=== PATIENT | male | born 1970 | race Caucasian/White ===

== ENCOUNTER 2019-12-07 03:30 | Inpatient (IN) | payer BC ==
[2019-12-07 04:19] LABS: ABSOLUTE BASOPHILS # (AUTO) 0.1 10^3/uL (0.0-0.2); ABSOLUTE EOSINOPHILS # (AUTO) 0.1 10^3/uL (0.0-0.6); ABSOLUTE LYMPHOCYTES (AUTO) 2.3 10^3/uL (0.5-4.7); ABSOLUTE MONOCYTES (AUTO) 1.4 10^3/uL (0.1-1.4); ABSOLUTE NEUT (AUTO) 15.4 10^3/uL (1.7-8.2); BASOPHILS % (AUTO) 0.4 % (0-2); EOSINOPHILS % (AUTO) 0.5 % (0-6); HEMATOCRIT 46.9 % (37.9-51.0); HEMOGLOBIN 15.7 g/dL (13.5-17.0); LYMPHOCYTES % (AUTO) 12.1 % (13-45); MEAN CORPUSCULAR HEMOGLOBIN 32.5 pg (27.0-33.4); MEAN CORPUSCULAR HGB CONC 33.5 g/dL (32.0-36.0); MEAN CORPUSCULAR VOLUME 97 fl (80-97); MONOCYTES % (AUTO) 7.1 % (3-13); PLATELET COUNT 262 10^3/uL (150-450); RED BLOOD COUNT 4.83 10^6/uL (4.35-5.55); RED CELL DISTRIBUTION WIDTH 12.8 % (11.5-14.0); SEGMENTED NEUTROPHILS % (AUTO) 79.9 % (42-78); TOTAL CELLS COUNTED % (AUTO) 100 %; WHITE BLOOD COUNT 19.3 10^3/uL (4.0-10.5)
[2019-12-07] MEDS ORDERED: KETOROLAC TROMETHAMINE INJ/PF 30 MG/1 ML SDV IV ONE (04:35)
[2019-12-07] MEDS ORDERED: MORPHINE SULFATE 10 MG/ML INJ IV ONE (04:35)
[2019-12-07 04:36] LABS: APPEARANCE,URINE CLEAR; BILIRUBIN,URINE NEGATIVE (NEGATIVE); COLOR,URINE YELLOW; GLUCOSE, URINE NEGATIVE (NEGATIVE); KETONES,URINE TRACE mg/dL (NEGATIVE); LEUKOCYTE ESTERASE,URINE NEGATIVE (NEGATIVE); NITRITE,URINE NEGATIVE (NEGATIVE); PROTEIN,URINE NEGATIVE (NEGATIVE); URINE SPECIFIC GRAVITY 1.012; UROBILINOGEN,URINE NEGATIVE mg/dL (<2.0)
[2019-12-07] MEDS ORDERED: NORMAL SALINE 1000 ML 1,000 ML IV ONE ×2 (04:37→05:57)
--- NOTE | 2019-12-07 04:39 | ER Document Report ---
ED GI/ - General Chief Complaint: Abdominal Pain Stated Complaint: ABDOMINAL PAIN Time Seen by Provider: 12/07/19 04:29 Notes: Patient is a 49-year-old male that comes emergency department for chief complaint of sudden onset severe pain in his left mid to lower abdomen that radiates around to his left back. He vomited 3 times. Symptoms woke him up from sleep tonight. He comes by ambulance, he was given 4 mg of Zofran. He denies fever, dysuria, injury, or any other complaints. Past medical history of hypothyroidism and GERD, he denies history of kidney stones, he denies any surgeries. - Related Data Home Medications: dexilant, levothyroxine Past Medical History - General Information source: Patient - Social History Smoking Status: Never Smoker Frequency of alcohol use: former heavy Drug Abuse: None Lives with: Alone Family History: Reviewed & Not Pertinent Patient has homicidal ideation: No Endocrine Medical History: Reports: Hx Hypothyroidism GI Medical History: Reports: Hx Gastroesophageal Reflux Disease - Immunizations Hx Diphtheria, Pertussis, Tetanus Vaccination: Yes Review of Systems - Review of Systems Constitutional: No symptoms reported EENT: No symptoms reported Cardiovascular: No symptoms reported Respiratory: No symptoms reported Gastrointestinal: See HPI Genitourinary: See HPI Male Genitourinary: No symptoms reported Musculoskeletal: No symptoms reported Skin: No symptoms reported Hematologic/Lymphatic: No symptoms reported Neurological/Psychological: No symptoms reported Physical Exam - Vital signs Vitals: Temp Pulse Resp BP Pulse Ox 97.5 F 66 20 140/77 H 100 12/07/19 03:35 12/07/19 03:35 12/07/19 03:35 12/07/19 03:35 12/07/19 03:35 - Notes Notes: GENERAL: Patient in obvious pain, has difficulty holding still, but he is cooperative and alert HEAD: Normocephalic, atraumatic. EYES: Pupils equal, round, and reactive to light. Extraocular movements intact. ENT: Oral mucosa moist, tongue midline. Oropharynx unremarkable. Airway patent. LUNGS: Clear to auscultation bilaterally, no wheezes, rales, or rhonchi. No respiratory distress. Non-tender chest wall. HEART: Regular rate and rhythm. No murmur ABDOMEN: Generalized tenderness in the left upper and mid to lower abdomen, nonspecific, no guarding, no rigidity, no distention GENITOURINARY: No swelling, tenderness, or abnormal findings noted. Exam performed with Linda RAO at bedside. EXTREMITIES: Moves all 4 extremities spontaneously. No edema, normal radial and dorsalis pedis pulses bilaterally. No cyanosis. BACK: no cervical, thoracic, lumbar midline tenderness. No saddle anesthesia, normal distal neurovascular exam. Moves all extremities in full range of motion. NEUROLOGICAL: Alert and oriented x3. Normal speech. Cranial nerves II through XII grossly intact. Strength 5/5 in all extremities. PSYCH: Somewhat anxious SKIN: Warm, dry, normal turgor. No rashes or lesions noted. Course - Re-evaluation Re-evalutation: Patient is very uncomfortable on initial evaluation, pain wraps around the left side to the flank and down the abdomen along the left side. Abdomen is nonspecific on exam, there is no noted guarding. Vital signs are unremarkable. Sudden onset of symptoms is most suggestive of ureterolithiasis. Work-up pending, medicating the patient. CBC shows leukocytosis at 19,000, chemistry unremarkable, lipase is still pending which suggests this is elevated. Urine unremarkable. CT indicating acute pancreatitis, unremarkable gallbladder, no kidney stones or ureterolithiasis. On reevaluation patient is improved but is still having pain, he will be remedicated. Patient will require admission for significant pancreatitis, vomiting, persistent pain requiring IV narcotics. Patient states full agreement with the plan. Discussed with Dr. Alexandra, hospitalist, patient will be accepted to [facility], daytime hospitalist will evaluate based on the time of admission. - Vital Signs Vital signs: Temp Pulse Resp BP Pulse Ox 97.5 F 66 20 140/77 H 100 12/07/19 03:35 12/07/19 03:35 12/07/19 03:35 12/07/19 03:35 12/07/19 03:35 - Laboratory Result Diagrams: 12/07/19 04:00 12/07/19 04:00 Laboratory results interpreted by me: 12/07/19 12/07/19 12/07/19 04:00 04:00 04:00 WBC 19.3 H Lymph % (Auto) 12.1 L Absolute Neuts (auto) 15.4 H Seg Neutrophils % 79.9 H Glucose 143 H Lipase 47363.0 H Urine Ketones TRACE H Discharge - Discharge Clinical Impression: Flank pain Acute pancreatitis Qualifiers: Pancreatitis type: idiopathic Acute pancreatitis complication: unspecified Qualified Code(s): K85.00 - Idiopathic acute pancreatitis without necrosis or infection Vomiting Qualifiers: Vomiting type: unspecified Vomiting Intractability: unspecified Nausea presence: with nausea Qualified Code(s): R11.2 - Nausea with vomiting, unspecified Abdominal pain Qualifiers: Abdominal location: generalized Qualified Code(s): R10.84 - Generalized abdominal pain Condition: Fair Disposition: ADMITTED INPATIENT Admitting Provider: Ibrahima (Hospitalist) Unit Admitted: [facility]
[2019-12-07 04:53] LABS: ALBUMIN 4.8 g/dL (3.5-5.0); ALKALINE PHOSPHATASE 79 U/L (38-126); ANION GAP 10 (5-19); ASPARTATE AMINO TRANSFERASE 24 U/L (17-59); BILIRUBIN,TOTAL 0.6 mg/dL (0.2-1.3); BLOOD UREA NITROGEN 17 mg/dL (7-20); CALCIUM 9.5 mg/dL (8.4-10.2); CARBON DIOXIDE 26 mmol/L (22-30); CHLORIDE 104 mmol/L (98-107); GLUCOSE 143 mg/dL (75-110); POTASSIUM 3.7 mmol/L (3.6-5.0); TOTAL PROTEIN 7.6 g/dL (6.3-8.2)
--- NOTE | 2019-12-07 05:38 | RADIOLOGY REPORT (SQ) ---
EXAM DESCRIPTION: CT ABDOMEN PELVIS WITHOUT IV CONTRAST COMPLETED DATE/TME: 12/07/2019 04:37 CLINICAL HISTORY: 49 years, Male, left flank and abd pain, vomiting COMPARISON: None. TECHNIQUE: 320 Images stored on PACS. All CT scanners at this facility use dose modulation, iterative reconstruction, and/or weight based dosing when appropriate to reduce radiation dose to as low as reasonably achievable (ALARA). [facility]: Dose Right [facility]: CareDose [facility]: Dose Right [facility]: Teradose 4D [facility]: [employer] LIMITATIONS: None. FINDINGS: The lung bases are unremarkable. Osseous structures are grossly intact. Limited evaluation of the liver, spleen, adrenal glands is unremarkable. Diffuse heterogeneity of the pancreas with extensive peripancreatic inflammatory change and phlegmon consistent with acute pancreatitis. The gallbladder is present. Negative for urinary tract calculus or hydronephrosis. No gross evidence for bowel obstruction. Abundant stool in the colon. No free air. Equivocal/trace of free fluid in the pelvis. Normal appendix. Mild atheromatous change IMPRESSION: Findings consistent with acute pancreatitis. Negative for urinary tract calculus or hydronephrosis TECHNICAL DOCUMENTATION: Quality ID # [id number]: Final reports with documentation of one or more dose reduction techniques (e.g., Automated exposure control, adjustment of the mA and/or kV according to patient size, use of iterative reconstruction technique) copyright 2011 [employer]- All Rights Reserved
[2019-12-07] MEDS ORDERED: HYDROMORPHONE HCL INJ/PF 2 MG/ML AMPULE IV ONE (05:55)
[2019-12-07] MEDS ORDERED: RINGERS SOLUTION,LACTATED 1,000 ML IV PRN (06:46)
[2019-12-07] MEDS ORDERED: HYDRALAZINE HCL INJ/PF 20 MG/1 ML SDV IV PRN (06:51)
[2019-12-07] MEDS ORDERED: LORAZEPAM INJ 2 MG/1 ML VIAL IV PRN (06:51)
[2019-12-07] MEDS ORDERED: PROMETHAZINE HCL INJ 25 MG/1 ML VIAL IV PRN (06:51)
[2019-12-07 07:45] LABS: ALKALINE PHOSPHATASE 69 U/L (38-126); ANION GAP 5 (5-19); ASPARTATE AMINO TRANSFERASE 21 U/L (17-59); BILIRUBIN,TOTAL 0.5 mg/dL (0.2-1.3); BLOOD UREA NITROGEN 17 mg/dL (7-20); CALCIUM 8.5 mg/dL (8.4-10.2); CARBON DIOXIDE 26 mmol/L (22-30); CHLORIDE 108 mmol/L (98-107); GLUCOSE 110 mg/dL (75-110); POTASSIUM 3.9 mmol/L (3.6-5.0); TOTAL PROTEIN 6.7 g/dL (6.3-8.2)
[2019-12-07] MEDS ORDERED: PANTOPRAZOLE SODIUM 40 MG VIAL IV ONE (07:45)
[2019-12-07 07:59] LABS: CHOLESTEROL 193.54 mg/dL (0-200); TRIGLYCERIDES 197 mg/dL (<150)
[2019-12-07 08:10] LABS: DIRECT LDL 121 mg/dL (<100)
[2019-12-07 08:25] LABS: AMYLASE 5378 U/L (30-110); VLDL CHOLESTEROL 39.4 mg/dL (10-31)
[2019-12-07] MEDS ORDERED: GLUCAGON,HUMAN RECOMB 1 MG INJ SUBCUT PRN (09:11)
[2019-12-07] MEDS ORDERED: DEXTROSE 50%-WATER 25 GM/50 ML DISP.SYRIN IV PRN ×2 (09:11)
[2019-12-07] MEDS ORDERED: DEXTROSE 40% GEL 15 GM TUBE PO PRN ×2 (09:11)
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
[2019-12-07] MEDS: ONDANSETRON HCL INJ/PF 4 MG/2 ML SDV IV PRN ×3 (09:53→22:40)
[2019-12-07] MEDS: HYDROMORPHONE HCL INJ/PF 2 MG/ML AMPULE IV PRN ×4 (09:53→19:37)
[2019-12-07] MEDS ORDERED: PANTOPRAZOLE SODIUM 40 MG TABLET.DR PO SCH (11:30)
[2019-12-07] MEDS: RINGERS SOLUTION,LACTATED 1,000 ML IV PRN ×2 (11:32→18:25)
[2019-12-07] MEDS: ENOXAPARIN SODIUM INJ 40 MG/0.4 ML DISP.SYRIN SUBCUT SCH ×2 (11:43→11:58)
--- NOTE | 2019-12-07 11:49 | RADIOLOGY REPORT (SQ) ---
EXAM DESCRIPTION: U/S ABDOMEN COMPLETE W/O DOP IMAGES COMPLETED DATE/TIME: 12/07/2019 10:45 am REASON FOR STUDY: Acute pancreatitis COMPARISON: CT same day TECHNIQUE: Dynamic and static grayscale images acquired of the abdomen and recorded on PACS. Additio nal selected color Doppler and spectral images recorded. Note: Study does not meet criteria for complete doppler/duplex scan LIMITATIONS: None. FINDINGS: PANCREAS: Heterogeneous. Pancreatic duct is 2.4 mm. LIVER: No masses. Echotexture normal. LIVER VASCULATURE: Normal directional flow of the main portal vein and hepatic veins. GALLBLADDER: Small polyps. No gallstones. ULTRASOUND-DETECTED SAWANT'S SIGN: Negative. INTRAHEPATIC DUCTS AND COMMON DUCT: CBD and intrahepatic ducts normal caliber. No filling defects. INFERIOR VENA CAVA: Normal flow. AORTA: No aneurysm. RIGHT KIDNEY: Normal size. Normal echogenicity. No solid or suspicious masses. No hydronephros is. No calcifications. LEFT KIDNEY: Normal size. Normal echogenicity. 1.2 cm complex cyst. No hydronephrosis. No ca lcifications. SPLEEN: Normal size. No solid masses. PERITONEAL AND PLEURAL SPACES: Mild fluid in the abdomen. OTHER: No other significant finding. IMPRESSION: No gallstones. Gallbladder polyp. Heterogeneous pancreas consistent with the diagnosis of pancreatitis. Complex cysts in left kidney. TECHNICAL DOCUMENTATION: JOB ID: [id number] [employer]- All Rights Reserved Reading location - IP/workstation name: [email or web address]
[2019-12-07] MEDS ORDERED: PANTOPRAZOLE SODIUM 40 MG VIAL IV SCH (22:00)
[2019-12-08] MEDS: RINGERS SOLUTION,LACTATED 1,000 ML IV PRN ×4 (00:26→20:19)
[2019-12-08] MEDS: HYDROMORPHONE HCL INJ/PF 2 MG/ML AMPULE IV PRN ×6 (00:26→23:58)
[2019-12-08] MEDS: LEVOTHYROXINE SODIUM 0.05 MG TABLET PO SCH ×2 (05:38→06:18)
[2019-12-08] MEDS: ONDANSETRON HCL INJ/PF 4 MG/2 ML SDV IV PRN ×3 (05:38→20:16)
[2019-12-08 07:27] LABS: ALBUMIN 3.4 g/dL (3.5-5.0); ALKALINE PHOSPHATASE 60 U/L (38-126); ANION GAP 5 (5-19); ASPARTATE AMINO TRANSFERASE 19 U/L (17-59); BILIRUBIN,TOTAL 1.1 mg/dL (0.2-1.3); BLOOD UREA NITROGEN 15 mg/dL (7-20); CALCIUM 8.5 mg/dL (8.4-10.2); CARBON DIOXIDE 28 mmol/L (22-30); CHLORIDE 103 mmol/L (98-107); GLUCOSE 102 mg/dL (75-110); POTASSIUM 3.7 mmol/L (3.6-5.0); TOTAL PROTEIN 5.9 g/dL (6.3-8.2)
[2019-12-08 07:55] LABS: AMYLASE 1867 U/L (30-110)
--- NOTE | 2019-12-08 08:27 | PDOC PROGRESS REPORT ---
Subjective Progress Note for:: 12/08/19 Subjective:: Patient reports that he had abdominal pain earlier this a.m. and received pain medication and currently is pain-free Reason For Visit: ACUTE PANCREATITIS Physical Exam Vital Signs: Temp Pulse Resp BP Pulse Ox 98.0 F 65 18 127/74 H 96 12/08/19 03:15 12/08/19 03:15 12/08/19 03:15 12/08/19 03:15 12/08/19 03:15 Intake & Output 12/07/19 12/08/19 12/09/19 06:59 06:59 06:59 Intake Total 1000 3686 Output Total 1025 Balance 1000 2661 Weight 113.398 kg 107.7 kg General appearance: PRESENT: no acute distress, cooperative Head exam: PRESENT: atraumatic, normocephalic Eye exam: PRESENT: conjunctiva pink Mouth exam: PRESENT: moist, tongue midline Neck exam: ABSENT: JVD Respiratory exam: PRESENT: clear to auscultation cherie, symmetrical, unlabored Cardiovascular exam: PRESENT: RRR, +S1, +S2 Pulses: PRESENT: normal radial pulses Vascular exam: PRESENT: normal capillary refill GI/Abdominal exam: PRESENT: guarding, normal bowel sounds, soft, tenderness, other - Abdomen tender to palpation especially in upper quadrants and epigastric area Rectal exam: PRESENT: deferred Extremities exam: PRESENT: full ROM. ABSENT: calf tenderness, pedal edema Musculoskeletal exam: PRESENT: ambulatory Neurological exam: PRESENT: alert, awake, oriented to person, oriented to place, oriented to time, oriented to situation, CN II-XII grossly intact Psychiatric exam: PRESENT: appropriate affect, normal mood. ABSENT: agitated, anxious Skin exam: PRESENT: dry, normal color, warm Results Laboratory Results: 12/08/19 06:10 12/08/19 06:10 12/07/19 12/07/19 12/07/19 04:00 12:17 14:35 WBC RBC Hgb Hct MCV MCH MCHC RDW Plt Count Sodium Potassium Chloride Carbon Dioxide Anion Gap BUN Creatinine Est GFR ( Amer) Glucose Lactic Acid 2.0 1.6 Calcium Magnesium Total Bilirubin AST Alkaline Phosphatase Total Protein Albumin Triglycerides 197 H Cholesterol 193.54 LDL Cholesterol Direct 121 H VLDL Cholesterol 39.4 H HDL Cholesterol 38 L Amylase 5378 H Lipase TSH Free T3 pg/mL 12/07/19 12/08/19 12/08/19 15:35 06:10 06:10 WBC Cancelled RBC Cancelled Hgb Cancelled Hct Cancelled MCV Cancelled MCH Cancelled MCHC Cancelled RDW Cancelled Plt Count Cancelled Sodium Potassium Chloride Carbon Dioxide Anion Gap BUN Creatinine Est GFR ( Amer) Glucose Lactic Acid Calcium Magnesium Total Bilirubin AST Alkaline Phosphatase Total Protein Albumin Triglycerides Cholesterol LDL Cholesterol Direct VLDL Cholesterol HDL Cholesterol Amylase Lipase TSH 1.55 Free T3 pg/mL 3.12 12/08/19 06:10 WBC RBC Hgb Hct MCV MCH MCHC RDW Plt Count Sodium 135.5 L Potassium 3.7 Chloride 103 Carbon Dioxide 28 Anion Gap 5 BUN 15 Creatinine 0.63 Est GFR ( Amer) > 60 Glucose 102 Lactic Acid Calcium 8.5 Magnesium 2.0 Total Bilirubin 1.1 AST 19 Alkaline Phosphatase 60 Total Protein 5.9 L Albumin 3.4 L Triglycerides Cholesterol LDL Cholesterol Direct VLDL Cholesterol HDL Cholesterol Amylase 1867 H Lipase 6698.7 H TSH Free T3 pg/mL Impressions: Abdomen Ultrasound 12/07/19 00:00 IMPRESSION: No gallstones. Gallbladder polyp. Heterogeneous pancreas consistent with the diagnosis of pancreatitis. Complex cysts in left kidney. Abdomen/Pelvis CT 12/07/19 04:37 IMPRESSION: Findings consistent with acute pancreatitis. Negative for urinary tract calculus or hydronephrosis TECHNICAL DOCUMENTATION: Quality ID # [id number]: Final reports with documentation of one or more dose reduction techniques (e.g., Automated exposure control, adjustment of the mA and/or kV according to patient size, use of iterative reconstruction technique) copyright 2011 [employer]- All Rights Reserved Assessment and Plan - Diagnosis (1) Acute pancreatitis Qualifiers: Pancreatitis type: idiopathic Acute pancreatitis complication: unspecified Qualified Code(s): K85.00 - Idiopathic acute pancreatitis without necrosis or i nfection Is this a current diagnosis for this admission?: Yes Plan: Lipase significantly improved today (6698) Triglycerides 197 Advance diet to clear liquids Continue IV fluids Pain management Continue to monitor lipase CT of the abdomen does not mention gallstones. Reviewed CT with radiologist who said that they cannot comment and recommend abdominal ultrasound if cholelithiasis is a concern Abdominal ultrasound reveals no gallstones, however there was an incidental finding of a gallbladder polyp as well as a complex cyst in the left kidney (2) Leucocytosis Is this a current diagnosis for this admission?: Yes Plan: CBC pending this a.m. 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 daily) (5) GERD (gastroesophageal reflux disease) Is this a current diagnosis for this admission?: Yes Plan: Continue PPI (patient is on Dexilant at home which is nonformulary) Changed to pantoprazole 40 mg p.o. daily - Time Time Spent with patient: 25-34 minutes Medications reviewed and adjusted accordingly: Yes Anticipated Discharge Disposition: Home, Self Care Anticipated Discharge: Other
[2019-12-08 08:30] LABS: HEMATOCRIT 39.3 % (37.9-51.0); HEMOGLOBIN 13.7 g/dL (13.5-17.0); MEAN CORPUSCULAR HEMOGLOBIN 33.1 pg (27.0-33.4); MEAN CORPUSCULAR HGB CONC 34.8 g/dL (32.0-36.0); MEAN CORPUSCULAR VOLUME 95 fl (80-97); PLATELET COUNT 205 10^3/uL (150-450); RED BLOOD COUNT 4.13 10^6/uL (4.35-5.55); WHITE BLOOD COUNT 14.8 10^3/uL (4.0-10.5)
[2019-12-08] MEDS: ENOXAPARIN SODIUM INJ 40 MG/0.4 ML DISP.SYRIN SUBCUT SCH (09:58)
[2019-12-08] MEDS ORDERED: PANTOPRAZOLE SODIUM 40 MG VIAL IV SCH (10:00)
[2019-12-09] MEDS: RINGERS SOLUTION,LACTATED 1,000 ML IV PRN (03:28)
[2019-12-09] MEDS: HYDROMORPHONE HCL INJ/PF 2 MG/ML AMPULE IV PRN ×6 (03:52→20:52)
[2019-12-09] MEDS: PANTOPRAZOLE SODIUM 40 MG TABLET.DR PO SCH (05:42)
[2019-12-09] MEDS: LEVOTHYROXINE SODIUM 0.05 MG TABLET PO SCH (05:43)
[2019-12-09 06:31] LABS: HEMATOCRIT 35.8 % (37.9-51.0); HEMOGLOBIN 12.2 g/dL (13.5-17.0); MEAN CORPUSCULAR HEMOGLOBIN 32.7 pg (27.0-33.4); MEAN CORPUSCULAR HGB CONC 34.1 g/dL (32.0-36.0); MEAN CORPUSCULAR VOLUME 96 fl (80-97); PLATELET COUNT 187 10^3/uL (150-450); RED BLOOD COUNT 3.73 10^6/uL (4.35-5.55); RED CELL DISTRIBUTION WIDTH 12.5 % (11.5-14.0); WHITE BLOOD COUNT 16.1 10^3/uL (4.0-10.5)
[2019-12-09 06:53] LABS: ALBUMIN 3.2 g/dL (3.5-5.0); ALKALINE PHOSPHATASE 59 U/L (38-126); AMYLASE 429 U/L (30-110); ANION GAP 9 (5-19); ASPARTATE AMINO TRANSFERASE 19 U/L (17-59); BILIRUBIN,TOTAL 1.1 mg/dL (0.2-1.3); BLOOD UREA NITROGEN 11 mg/dL (7-20); CALCIUM 8.3 mg/dL (8.4-10.2); CARBON DIOXIDE 27 mmol/L (22-30); CHLORIDE 95 mmol/L (98-107); GLUCOSE 102 mg/dL (75-110); POTASSIUM 3.4 mmol/L (3.6-5.0); TOTAL PROTEIN 5.7 g/dL (6.3-8.2)
[2019-12-09] MEDS ORDERED: POTASSI CL 20 MEQ/50 ML RIDER 20 MEQ/50 ML RTUPB IV ONE (08:30)
[2019-12-09] MEDS: ENOXAPARIN SODIUM INJ 40 MG/0.4 ML DISP.SYRIN SUBCUT SCH (10:19)
[2019-12-09] MEDS: NORMAL SALINE 1000 ML 1,000 ML IV PRN ×2 (10:23→19:55)
--- NOTE | 2019-12-09 14:25 | PDOC PROGRESS REPORT ---
Subjective Progress Note for:: 12/09/19 Subjective:: Patient reports ongoing intermittent abdominal pain and bloating Reason For Visit: ACUTE PANCREATITIS Physical Exam Vital Signs: Temp Pulse Resp BP Pulse Ox 97.8 F 60 17 146/80 H 99 12/09/19 10:58 12/09/19 10:58 12/09/19 10:58 12/09/19 10:58 12/09/19 10:58 Intake & Output 12/08/19 12/09/19 12/10/19 06:59 06:59 06:59 Intake Total 3686 3810 1170 Output Total 2584 645 9171 Balance 2661 3085 170 Weight 107.7 kg 108.1 kg General appearance: PRESENT: no acute distress, cooperative, well-developed, well-nourished Head exam: PRESENT: atraumatic, normocephalic Eye exam: PRESENT: conjunctiva pink Mouth exam: PRESENT: moist, tongue midline Neck exam: ABSENT: JVD Respiratory exam: PRESENT: clear to auscultation cherie, symmetrical, unlabored. ABSENT: accessory muscle use Cardiovascular exam: PRESENT: RRR, +S1, +S2 Vascular exam: PRESENT: normal capillary refill GI/Abdominal exam: PRESENT: normal bowel sounds, soft. ABSENT: distended, tenderness Rectal exam: PRESENT: deferred Extremities exam: ABSENT: calf tenderness, clubbing, pedal edema Musculoskeletal exam: PRESENT: ambulatory Neurological exam: PRESENT: alert, awake, oriented to person, oriented to place, oriented to time, oriented to situation, CN II-XII grossly intact Psychiatric exam: PRESENT: appropriate affect, normal mood. ABSENT: agitated, anxious Skin exam: PRESENT: dry, normal color, warm Results Laboratory Results: 12/09/19 05:32 12/09/19 05:32 12/09/19 12/09/19 05:32 05:32 WBC 16.1 H RBC 3.73 L Hgb 12.2 L Hct 35.8 L MCV 96 MCH 32.7 MCHC 34.1 RDW 12.5 Plt Count 187 Sodium 130.7 L Potassium 3.4 L Chloride 95 L Carbon Dioxide 27 Anion Gap 9 BUN 11 Creatinine 0.56 Est GFR ( Amer) > 60 Glucose 102 Calcium 8.3 L Magnesium 1.9 Total Bilirubin 1.1 AST 19 Alkaline Phosphatase 59 Total Protein 5.7 L Albumin 3.2 L Amylase 429 H Lipase 563.5 H Impressions: Abdomen Ultrasound 12/07/19 00:00 IMPRESSION: No gallstones. Gallbladder polyp. Heterogeneous pancreas consistent with the diagnosis of pancreatitis. Complex cysts in left kidney. Abdomen/Pelvis CT 12/07/19 04:37 IMPRESSION: Findings consistent with acute pancreatitis. Negative for urinary tract calculus or hydronephrosis TECHNICAL DOCUMENTATION: Quality ID # [id number]: Final reports with documentation of one or more dose reduction techniques (e.g., Automated exposure control, adjustment of the mA and/or kV according to patient size, use of iterative reconstruction technique) copyright 2011 [employer]- All Rights Reserved Assessment and Plan - Diagnosis (1) Acute pancreatitis Qualifiers: Pancreatitis type: idiopathic Acute pancreatitis complication: unspecified Qualified Code(s): K85.00 - Idiopathic acute pancreatitis without necrosis or infection Is this a current diagnosis for this admission?: Yes Plan: Lipase continues to trend down Triglycerides 197 Continue clear liquid diet, patient continues to have pain Continue IV fluids Patient reports adequate pain control on current analgesic plan Continue to monitor lipase CT of the abdomen does not mention gallstones. Reviewed CT with radiologist who said that they cannot comment and recommend abdominal ultrasound if cholelithiasis is a concern Abdominal ultrasound reveals no gallstones, however there was an incidental finding of a gallbladder polyp as well as a complex cyst in the left kidney (2) Leucocytosis Is this a current diagnosis for this admission?: Yes Plan: Leukocytosis worsening Patient remains afebrile and nontoxic in appearance No mention of necrosis on CT Check blood cultures If leukocytosis persists or worsens consider repeat CT of the abdomen Continue to monitor off antibiotics (3) Nausea and vomiting Is this a current diagnosis for this admission?: Yes Plan: Resolved Promethazine stopped on 12/07/2019, patient has history of polysubstance abuse and has been in recovery for 17 years thus we will avoid medications which have significant [employer] effects Continue ondansetron 4 mg IV every 6 hours as needed (4) Hypothyroidism Qualifiers: 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 daily (5) GERD (gastroesophageal reflux disease) Is this a current diagnosis for this admission?: Yes Plan: Continue PPI (patient is on Dexilant at home which is nonformulary) Continue pantoprazole 40 mg p.o. daily - Time Time Spent with patient: 25-34 minutes Medications reviewed and adjusted accordingly: Yes Anticipated Discharge Disposition: Home, Self Care Anticipated Discharge: Other
[2019-12-09] MEDS: ONDANSETRON HCL INJ/PF 4 MG/2 ML SDV IV PRN (20:56)
[2019-12-10] MEDS: HYDROMORPHONE HCL INJ/PF 2 MG/ML AMPULE IV PRN ×4 (00:27→11:20)
[2019-12-10] MEDS: NORMAL SALINE 1000 ML 1,000 ML IV PRN ×2 (05:39→15:59)
[2019-12-10] MEDS: PANTOPRAZOLE SODIUM 40 MG TABLET.DR PO SCH (05:39)
[2019-12-10] MEDS: LEVOTHYROXINE SODIUM 0.05 MG TABLET PO SCH (05:39)
[2019-12-10 06:43] LABS: HEMATOCRIT 36.6 % (37.9-51.0); HEMOGLOBIN 12.4 g/dL (13.5-17.0); MEAN CORPUSCULAR HEMOGLOBIN 32.4 pg (27.0-33.4); MEAN CORPUSCULAR VOLUME 95 fl (80-97); PLATELET COUNT 184 10^3/uL (150-450); RED BLOOD COUNT 3.84 10^6/uL (4.35-5.55); RED CELL DISTRIBUTION WIDTH 12.8 % (11.5-14.0); WHITE BLOOD COUNT 15.1 10^3/uL (4.0-10.5)
[2019-12-10] MEDS: ENOXAPARIN SODIUM INJ 40 MG/0.4 ML DISP.SYRIN SUBCUT SCH (10:15)
[2019-12-10] MEDS ORDERED: BISACODYL 10 MG SUPP.RECT PR PRN (11:54)
[2019-12-10] MEDS ORDERED: HYDROMORPHONE HCL INJ/PF 2 MG/ML AMPULE IV PRN ×2 (11:54→11:56)
[2019-12-10] MEDS ORDERED: BISACODYL 5 MG TABEC PO PRN (11:54)
[2019-12-10] MEDS ORDERED: BISACODYL 5 MG TABEC PO ONE (11:54)
[2019-12-10] MEDS ORDERED: MAG CARB/AL HYDROX/ALGINIC AC 355 ML BOTTLE PO PRN (11:58)
--- NOTE | 2019-12-10 12:08 | PDOC PROGRESS REPORT ---
Subjective Progress Note for:: 12/10/19 Subjective:: Patient went for acute pancreatitis with lipase up to 56,000, trended downward thereafter. Pain slow to resolve and limiting ability to tolerate diet. 12/02/2019 Patient doing slightly better today but still is not eating a diet. He states last time he tried to eat broth few days ago his abdominal pain recurred. He states his pain is mostly controlled on the current narcotics regimen although he is not needing this as often as it is available. I have reduced the dose and frequency of his narcotics as I believe these are probably causing worsening constipation as he has not had a bowel movement since prior to this admission. I added a bowel regimen and we can give an enema as a last resort if oral and rectal Dulcolax are ineffective. I believe his constipation is significantly worsening his abdominal pain which have been improving. We can restart a liquid diet after we get him to have a bowel movement today. Other than abdominal pain, patient has no other complaints. Reason For Visit: ACUTE PANCREATITIS Physical Exam Vital Signs: Temp Pulse Resp BP Pulse Ox 99.1 F 69 18 147/81 H 93 12/10/19 07:47 12/10/19 07:47 12/10/19 07:47 12/10/19 07:47 12/10/19 07:47 Intake & Output 12/09/19 12/10/19 12/11/19 06:59 06:59 06:59 Intake Total 3810 4096 Output Total 725 1900 Balance 3085 2196 Weight 108.1 kg 107 kg General appearance: PRESENT: no acute distress, well-developed, well-nourished Head exam: PRESENT: atraumatic, normocephalic Eye exam: PRESENT: conjunctiva pink Ear exam: PRESENT: normal external ear exam Mouth exam: PRESENT: moist Neck exam: ABSENT: carotid bruit, JVD, lymphadenopathy, thyromegaly Respiratory exam: PRESENT: clear to auscultation cherie. ABSENT: rales, rhonchi, wheezes Cardiovascular exam: PRESENT: RRR. ABSENT: diastolic murmur, rubs, systolic murmur Pulses: PRESENT: normal dorsalis pedis pul Vascular exam: PRESENT: normal capillary refill GI/Abdominal exam: PRESENT: normal bowel sounds, soft, tenderness - Moderate epigastric. ABSENT: distended, guarding, mass, organolmegaly, rebound Rectal exam: PRESENT: deferred Extremities exam: PRESENT: full ROM. ABSENT: calf tenderness, clubbing, pedal edema Neurological exam: PRESENT: alert, awake, oriented to person, oriented to place, oriented to time, oriented to situation, CN II-XII grossly intact. ABSENT: motor sensory deficit Psychiatric exam: PRESENT: appropriate affect, normal mood. ABSENT: homicidal ideation, suicidal ideation Skin exam: PRESENT: dry, intact, warm. ABSENT: cyanosis, rash Results Laboratory Results: 12/10/19 05:38 12/09/19 05:32 12/10/19 12/10/19 05:38 05:38 WBC 15.1 H RBC 3.84 L Hgb 12.4 L Hct 36.6 L MCV 95 MCH 32.4 MCHC 34.0 RDW 12.8 Plt Count 184 Magnesium 2.2 Amylase 107 Lipase 151.7 Impressions: Abdomen Ultrasound 12/07/19 00:00 IMPRESSION: No gallstones. Gallbladder polyp. Heterogeneous pancreas consistent with the diagnosis of pancreatitis. Complex cysts in left kidney. Abdomen/Pelvis CT 12/07/19 04:37 IMPRESSION: Findings consistent with acute pancreatitis. Negative for urinary tract calculus or hydronephrosis TECHNICAL DOCUMENTATION: Quality ID # 436: Final reports with documentation of one or more dose reduction techniques (e.g., Automated exposure control, adjustment of the mA and/or kV according to patient size, use of iterative reconstruction technique) copyright 2011 [employer]- All Rights Reserved Assessment and Plan - Diagnosis (1) Acute pancreatitis Qualifiers: Pancreatitis type: idiopathic Acute pancreatitis complication: unspecified Qualified Code(s): K85.00 - Idiopathic acute pancreatitis without necrosis or infection Is this a current diagnosis for this admission?: Yes Plan: Per previous physician: "Lipase continues to trend down Triglycerides 197 Continue clear liquid diet, patient continues to have pain Continue IV fluids Patient reports adequate pain control on current analgesic plan Continue to monitor lipase CT of the abdomen does not mention gallstones. Reviewed CT with radiologist who said that they cannot comment and recommend abdominal ultrasound if cholelithiasis is a concern Abdominal ultrasound reveals no gallstones, however there was an incidental finding of a gallbladder polyp as well as a complex cyst in the left kidney" 12/02/2019 Abdominal pain continues, likely being exacerbated by persistent constipation which has been present since admission. Started on bowel regimen of Dulcolax oral and rectal and we can use a enema as a last resort Reduce narcotics dosing frequency as he is not requiring these [id number] and this is likely exacerbating his constipation Start clear liquid diet after bowel movement achieved (2) GERD (gastroesophageal reflux disease) Is this a current diagnosis for this admission?: Yes Plan: Per previous physician: "Continue PPI (patient is on Dexilant at home which is nonformulary) Continue pantoprazole 40 mg p.o. 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 Qualified Code(s): E03.1 - Congenital hypothyroidism without goiter Is this a current diagnosis for this admission?: Yes (4) Leucocytosis Is this a current diagnosis for this admission?: Yes (5) Nausea and vomiting Is this a current diagnosis for this admission?: Yes (6) Vomiting Qualifiers: Vomiting type: unspecified Vomiting Intractability: unspecified Nausea presence: with nausea Qualified Code(s): R11.2 - Nausea with vomiting, unspecified Is this a current diagnosis for this admission?: Yes (7) Flank pain Is this a current diagnosis for this admission?: Yes (8) Abdominal pain Qualifiers: Abdominal location: generalized Qualified Code(s): R10.84 - Generalized abdominal pain Is this a current diagnosis for this admission?: Yes - Time Time Spent with patient: 15-24 minutes Medications reviewed and adjusted accordingly: Yes Anticipated Discharge Disposition: Home, Self Care Anticipated Discharge: within 36 hours - Inpatient Certification Based on my medical assessment, after consideration of the patient's comorbidities, presenting symptoms, or acuity I expect that the services needed warrant INPATIENT care.: Yes I certify that my determination is in accordance with my understanding of Medicare's requirements for reasonable and necessary INPATIENT services [42 CFR 412.3e].: Yes Medical Necessity: Significant Comorbidiites Make Outpatient Treatment Too Risky, Need Close Monitoring Due to Risk of Patient Decompensation, Need for Pain Control, Risk of Complication if Not Cared For in Hospital, Risk of Diagnosis Which Will Require Inpatient Eval/Care/Monitoring
--- NOTE | 2019-12-10 20:03 | Progress Note ---
Provider Note Provider Note: Nurse called and reported that patient was not getting relief from hydromorphone, and it was in fact making his pain worse. Since narcotics seem to be ineffective and possibly harmful for him, I discontinued hydromorphone and started ketorolac.
[2019-12-10] MEDS: KETOROLAC TROMETHAMINE INJ/PF 30 MG/1 ML SDV IV PRN (20:37)
[2019-12-11] MEDS: NORMAL SALINE 1000 ML 1,000 ML IV PRN ×2 (01:59→11:08)
[2019-12-11] MEDS: KETOROLAC TROMETHAMINE INJ/PF 30 MG/1 ML SDV IV PRN ×3 (02:39→14:47)
[2019-12-11] MEDS: LEVOTHYROXINE SODIUM 0.05 MG TABLET PO SCH (05:27)
[2019-12-11] MEDS: PANTOPRAZOLE SODIUM 40 MG TABLET.DR PO SCH (05:27)
[2019-12-11] MEDS: ENOXAPARIN SODIUM INJ 40 MG/0.4 ML DISP.SYRIN SUBCUT SCH (09:53)
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
[2019-12-11 15:01] VITALS: BP 131/66
== END 2019-12-11 16:09 | disposition home or self-care (01) | DRG 440 ==
LOC: ER 03:30 → EH 06:40 → 3S 10:38
PROVIDERS: ADMIT Emergency Medicine; ATTEND Internal Medicine
DX: K85.00 Idiopathic acute pancreatitis without necrosis or infection (principal); E03.1 Congenital hypothyroidism without goiter; K21.9 Gastro-esophageal reflux disease without esophagitis; K59.03 Drug induced constipation; M54.2 Cervicalgia; G89.21 Chronic pain due to trauma; Z79.899 Other long term (current) drug therapy; T40.605A Adverse effect of unspecified narcotics, initial encounter; Z87.898 Personal history of other specified conditions
CPT/HCPCS: 36415; 74176; 76700; 80053; 80061; 81001; 82150; 82962; 83605; 83690; 83735; 84443; 84481; 85025; 85027; 87040; 87070; 94660; 96361; 96374; 96375; 99285; C9113; J1170; J1650; J1885; J2270; J2405; J3480; J3490; J7030; J7120

== ENCOUNTER → 2019-12-19 | Outpatient (CLI) | payer BC ==
--- NOTE | 2019-12-19 14:28 | RADIOLOGY REPORT (SQ) ---
EXAM DESCRIPTION: CT ABDOMEN COMBO IMAGES COMPLETED DATE/TIME: 12/19/2019 11:17 am REASON FOR STUDY: IDIOPATHIC ACUTE PANCREATITIS W/O NECROSIS OR INFECTION (K85.00) K85.00 IDIOPATHI C ACUTE PANCREATITIS WITHOUT NECROSIS OR INF COMPARISON: 12/07/2019 TECHNIQUE: CT scan of the abdomen performed with and without intravenous contrast, and without oral contrast. Contrasted imaging performed using helical scanning technique with dynamic intravenous cont rast injection. Images reviewed with lung, soft tissue, and bone windows. Reconstructed coronal and s agittal MPR images reviewed. Delayed images for evaluation of the urinary system also acquired and ev aluated. All images stored on PACS. All CT scanners at this facility use dose modulation, iterative reconstruction, and/or weight based d osing when appropriate to reduce radiation dose to as low as reasonably achievable (ALARA). [facility]: Dose Right [facility]: CareDose [facility]: Dose Right [facility]: Teradose 4D [facility]: [employer] CONTRAST TYPE AND DOSE: contrast/concentration: Isovue 350.00 mmol/ml; Total Contrast Delivered: 63. 0 ml; Total Saline Delivered: 55.0 ml RENAL FUNCTION: GFR > 60. RADIATION DOSE: CT Rad equipment meets quality standard of care and radiation dose reduction techniq ues were employed. CTDIvol: 13.0 - 31.0 mGy. DLP: 2250 mGy-cm.. LIMITATIONS: None. FINDINGS: NONCONTRASTED IMAGING: No significant renal or bladder calcifications. No other significan t organ calcifications. POSTCONTRASTED IMAGING: LOWER CHEST: No significant findings. No nodules or infiltrates. LIVER: Normal size. No masses. No dilated ducts. SPLEEN: Normal size. No focal lesions. PANCREAS: Previously demonstrated peripancreatic inflammatory changes for cyst, demonstrating a more organized appearance on today's examination. No focal pancreatic mass or pseudocyst is demonstrated. No pancreatic calcifications. GALLBLADDER: No identified stones by CT criteria. No inflammatory changes to suggest cholecystitis. ADRENAL GLANDS: No significant masses or asymmetry. RIGHT KIDNEY AND URETER: No solid masses. No significant calcifications. No hydronephrosis or hyd roureter as visualized. LEFT KIDNEY AND URETER: No solid masses. No significant calcifications. No hydronephrosis or hydr oureter as visualized. AORTA AND VESSELS: No aneurysm. No dissection. Renal arteries, SMA, celiac without stenosis. RETROPERITONEUM: No retroperitoneal adenopathy, hemorrhage or masses. BOWEL AND PERITONEAL CAVITY: No masses or inflammatory changes. No free fluid or peritoneal masses. ABDOMINAL WALL: No masses. No hernias. BONES: No significant or acute findings. OTHER: No other significant finding. IMPRESSION: Findings consistent with persistent pancreatitis without organized abscess. TECHNICAL DOCUMENTATION: JOB ID: [id number] Quality ID # [id number]: Final reports with documentation of one or more dose reduction techniques (e.g., Au tomated exposure control, adjustment of the mA and/or kV according to patient size, use of iterative reconstruction technique) 2010 [employer]- All Rights Reserved Reading location - IP/workstation name: [email or web address]
== END ==
LOC: RAD 09:26
PROVIDERS: ATTEND Internal Medicine Gastroenterology
DX: K85.00 Idiopathic acute pancreatitis without necrosis or infection (principal)
CPT/HCPCS: 74170